=== PATIENT | male | born 1960 | race Caucasian/White ===

== ENCOUNTER 2017-05-10 16:09 | Emergency (ER) | payer MEDICARE, OTHER ==
[~2017-05-10] VITALS: Ht 172.7 cm; Wt 81.6 kg
[2017-05-10] MEDS ORDERED: IV NORMAL SALINE 1,000ML 1,000 ML IV SCH (16:27)
--- NOTE | 2017-05-10 17:00 | RAD ---
HAND LEFT 3V History: Injury to left hand. Attention to second digit, distal. Laceration to finger. Comparison: None There is a comminuted fracture across the shaft of the distal second phalanx. There is associated soft tissue injury and the bone may be exposed. No dislocation. IMPRESSION: Posttraumatic fracture of the distal phalanx of the second finger. Associated soft tissue injury and the fracture may be open. Electronically signed by: Tesfaye Adair MD (05/10/2017 4:58 PM) [id number]
[2017-05-10] MEDS ORDERED: LIDOCAINE 1% Multi-Dose 20 ML VIAL. ONE (17:24)
--- NOTE | 2017-05-10 17:29 | PHYS DOC ---
Adult General Chief Complaint Chief Complaint: LACERATION/AVULSION HPI HPI 56-year-old male presenting to the emergency department after sustaining a laceration/partial amputation to the distal portion of his second phalanx. He was working with a miter saw when the saw accidentally went off and cut through his finger. He was able to reapproximate his finger. Prior to that he reports that the distal part of his finger was "hanging there". He denies any other injuries. Onset today. Location left hand. Duration constant. No alleviating factors. Medical history history of diabetes, high blood pressure and high cholesterol and chronic back problems. Surgical history: Multiple back surgeries, left thumb, left finger surgeries, first rib resection, sinus surgery. Allergies: Penicillin and amoxicillin Social history: No smoking and occasional drinking. ROS neg for cp, soa, abd pain, n/v, fevers or chills. All other review of systems is negative unless otherwise noted in history of present illness. ED course: 56 yo M presenting to the ED today with a partially amputation to the left second distal phalanx. No other injuries. X-ray obtained which shows fracture of the distal phalanx on the second phalanx. I discussed the case with Dr. Frankel our orthopedic surgeon who states that he would be able to follow this up in clinic in the next 3-5 days. The patient's wound was washed out in the emergency department. I reapproximated the patient's wound and placed the patient in a splint. The patient will follow-up with Dr. Frankel. The patient was then discharged home in stable condition. They were to return if their symptoms worsened or if they were concerned for any reason. [id number] discharge instructions and return precautions were given. Patient's questions were answered to their satisfaction. Patient is comfortable with plan. Review of Systems Review of Systems SEE ABOVE. Current Medications Current Medications Current Medications Medications (Trade) Dose Ordered Sig/Catina Start Time Stop Time Status Last Admin Dose Admin Diphtheria/ Tetanus/Acell Pertussis (Boostrix) 0.5 ml ONCE ONCE 05/10/17 16:30 05/10/17 16:31 UNV Fentanyl Citrate (Fentanyl 2ml Vial) 50 mcg PRN Q15MIN PRN 05/10/17 16:30 05/11/17 16:29 UNV Sodium Chloride 1,000 ml @ 1,000 mls/hr Q1H 05/10/17 16:27 05/10/17 17:26 UNV Physical Exam Physical Exam SEE ABOVE Constitutional: Well developed, well nourished, no acute distress, non-toxic appearance. [] HENT: Normocephalic, atraumatic, bilateral external ears normal, oropharynx moist, no oral exudates, nose normal. Eyes: PERRLA, EOMI, conjunctiva normal, no discharge. [] Neck: Normal range of motion, no tenderness, supple, no stridor. Cardiovascular:Heart rate regular rhythm, no murmur [] Lungs & Thorax: Bilateral breath sounds clear to auscultation Abdomen: Bowel sounds normal, soft, no tenderness, no masses, no pulsatile masses. [] Skin: Warm, dry, no erythema, no rash. Back: No tenderness, no CVA tenderness. [] Extremities: The patient's left upper extremity is warm and well perfused with palpable pulse. The patient has sustained a partial amputation the distal phalanx. The tissue is partially still connected to the remainder the finger. No other traumatic injuries identified. The remainder the extremities are nontender with normal range of motion. Neurologic: Alert and oriented X 3, normal motor function, normal sensory function, no focal deficits noted. Psychologic: Affect normal, judgement normal, mood normal. [] EKG EKG [] Radiology/Procedures Radiology/Procedures [] Course & Med Decision Making Course & Med Decision Making Pertinent Labs and Imaging studies reviewed. (See chart for details) [] Dragon Disclaimer Dragon Disclaimer This electronic medical record was generated, in whole or in part, using a voice recognition dictation system. Departure Departure: Impression: Primary Impression: Finger injury Additional Impression: Injury of finger of left hand Disposition: HOME, SELF-CARE Condition: STABLE Referrals: PCP,NO (PCP) Patient Instructions: Finger Avulsion, Finger Fracture, Fingertip Injuries and Amputations Additional Instructions: Thank you for allowing us to participate in your care today. Followup with your Dr. Frankel in 3-5 days. call to make appt. [address], [place] [address] Call your Primary Doctor tomorrow and inform them of your visit today. If you do not have a primary care provider you can ask for a list of our primary care providers. Return to the emergency department you have any new or concerning findings. This should be evaluated by the primary care physician and any necessary consulting services for continued management within a few days after discharge. Return to emergency room if you have any new or concerning symptoms including but not limited to fever, chills, nausea, vomiting, intractable pain, any new rashes, chest pain, shortness of air, uncontrolled bleeding, difficulty breathing, and/or vision loss. You may have been prescribed medication that can change in your level of thinking and ability to operate machinery. These medications include hydrocodone and Ativan. Also, Benadryl has been known to do this as well. Be sure to check with your pharmacist and ask if the medications you've prescribed can affect your level of consciousness. I recommend not operating heavy machinery or driving while on medication such as these. Scripts Clindamycin Hcl (CLINDAMYCIN HCL) 300 Mg Capsule 1 CAP PO TID, #21 CAP Prov: IESHA SIERRA MD 05/10/17 Laceration Repair Lac Repair Indication: fingertip laceration Procedure: The patient was placed in the appropriate position and anesthesia around the right 2nd phalynx after finger block w/ 1% lidocaine. The area was then washed out with 250 mL of saline under high pressure. The finger was cleansed with Betadine. The laceration was closed using simple interrupted technique. 7 sutures nonabsorbable used. The wound area was then dressed with nonadherent dressing along with a splint. Total repaired wound length: 3 cm. Other Items: The patient tolerated the procedure well. Complications: none. Problem Qualifiers IESHA SIERRA MD May 10, 2017 17:29
[2017-05-10] MEDS ORDERED: DIPHTH,PERTUSS(ACELL),TET TOX 0.5 ML DISP.SYRIN. VAX IM ONE (17:30)
[2017-05-10] MEDS ORDERED: CLINDAMYCIN HCL 150 MG CAPSULE PO ONE (18:00)
[2017-05-10] MEDS ORDERED: CLIN300C8 PO (18:30)
[2017-05-10 18:56] VITALS: BP 111/42
== END 2017-05-10 19:03 | disposition home or self-care (01) ==
LOC: ER 16:09
DX: S68.123A Partial traumatic metacarpophalangeal amputation of left middle finger, initial encounter (principal); E11.9 Type 2 diabetes mellitus without complications; E78.00 Pure hypercholesterolemia, unspecified; G89.29 Other chronic pain; I10 Essential (primary) hypertension; Z88.0 Allergy status to penicillin; Z88.1 Allergy status to other antibiotic agents; W29.8XXA Contact with other powered hand tools and household machinery, initial encounter; Y93.89 Activity, other specified; Y99.8 Other external cause status; Y92.89 Other specified places as the place of occurrence of the external cause
CPT/HCPCS: 12002; 73130; 90471; 90715; 96361; 96374; 96376; 99284; J3010; J7030

== ENCOUNTER → 2017-12-03 | Outpatient (CLI) | payer MEDICARE ==
[~2017-12-03] MED LIST: BUPIVACAINE MPF 0.25% 30 ML VIAL. ONE; CLIN300C8 PO; methylPREDNISolone ACETATE 40 MG/ML VIAL. ONE
== END | disposition home or self-care (01) ==
LOC: SURG 11:36
PROVIDERS: ATTEND Anesthesiology Pain Medicine
DX: M79.18 Myalgia, other site (principal); Z88.0 Allergy status to penicillin; Z88.1 Allergy status to other antibiotic agents
CPT/HCPCS: 20553; J1030; J3490

== ENCOUNTER 2018-05-28 11:19 | Emergency (ER) | payer MEDICARE ==
[~2018-05-28] VITALS: Ht 172.7 cm; Wt 82.6 kg
[~2018-05-28 11:19] MED LIST changes: -BUPIVACAINE MPF 0.25% 30 ML VIAL. ONE; -methylPREDNISolone ACETATE 40 MG/ML VIAL. ONE
--- NOTE | 2018-05-28 11:41 | PHYS DOC ---
Past History Past Medical History: Diabetes, High Cholesterol, Other Past Surgical History: Other Alcohol Use: None Drug Use: None Adult General Chief Complaint Chief Complaint: SORE THROAT HPI HPI 57-year-old male presents with sore throat. Patient states that he has been hurting for about a week. It still seems to be getting worse. It is painful to swallow. He has had intermittent cough as well. His was diagnosed with influenza couple weeks ago. Patient has not had a fever at home. He denies congestion, shortness of breath, chest pain. Review of Systems Review of Systems Constitutional: Denies fever or chills [] Eyes: Denies change in visual acuity, redness, or eye pain [] HENT: sore throat [] Respiratory: Cough without shortness of breath [] Cardiovascular: No additional information not addressed in HPI [] GI: Denies abdominal pain, nausea, vomiting, bloody stools or diarrhea [] : Denies dysuria or hematuria [] Musculoskeletal: Denies back pain or joint pain [] Integument: Denies rash or skin lesions [] Neurologic: Denies headache, focal weakness or sensory changes [] Endocrine: Denies polyuria or polydipsia [] All other systems were reviewed and found to be within normal limits, except as documented in this note. Allergies Allergies Allergies Coded Allergies Type Severity Reaction Last Updated Verified Penicillins Allergy Unknown 05/10/17 Yes amoxicillin Allergy Unknown 05/10/17 Yes Physical Exam Physical Exam Constitutional: Well developed, well nourished, no acute distress, non-toxic appearance. [] HENT: Normocephalic, atraumatic, bilateral external ears normal, oropharynx erythematous without exudates, nose normal. [] Eyes: PERRLA, EOMI, conjunctiva normal, no discharge. [] Neck: Normal range of motion, no tenderness, supple, no stridor. [] Cardiovascular:Heart rate regular rhythm, no murmur [] Lungs & Thorax: Bilateral breath sounds clear to auscultation [] Abdomen: Bowel sounds normal, soft, no tenderness, no masses, no pulsatile masses. [] Skin: Warm, dry, no erythema, no rash. [] Back: No tenderness, no CVA tenderness. [] Extremities: No tenderness, no cyanosis, no clubbing, ROM intact, no edema. [] Neurologic: Alert and oriented X 3, normal motor function, normal sensory function, no focal deficits noted. [] Psychologic: Affect normal, judgement normal, mood normal. [] EKG EKG [] Radiology/Procedures Radiology/Procedures [] Course & Med Decision Making Course & Med Decision Making Pertinent Labs and Imaging studies reviewed. (See chart for details) The patient's rapid strep and influenza's are negative. His is likely viral, but I will give the patient a prescription for azithromycin due to his penicillin allergy in case it does not improve. The patient is stable for discharge at this time. [] Dragon Disclaimer Dragon Disclaimer This electronic medical record was generated, in whole or in part, using a voice recognition dictation system. Departure Departure: Impression: Primary Impression: Pharyngitis Disposition: 01 HOME, SELF-CARE Condition: STABLE Referrals: TEE HENRY DO (PCP) Patient Instructions: Viral and Bacterial Pharyngitis, [id number] Scripts Azithromycin (AZITHROMYCIN TABLET) 250 Mg Tablet 1 PKG PO UD for pharyngitis, #6 TAB Prov: CELIO TIJERINA DO 05/28/18 Problem Qualifiers Primary Impression: Pharyngitis Pharyngitis/tonsillitis etiology: unspecified etiology Qualified Codes: J02.9 - Acute pharyngitis, unspecified CELIO TIJERINA DO May 28, 2018 11:41
[2018-05-28 12:08] LABS: INFLUENZA A PATIENT NEGATIVE (NEGATIVE); INFLUENZA B PATIENT NEGATIVE (NEGATIVE)
[2018-05-28] MEDS ORDERED: AZIT250T6 PO (12:18)
[2018-05-28 12:29] VITALS: BP 108/64
[2018-05-28] MEDS ORDERED: LIDOCAINE 2% VISCOUS 15 ML SOLUTION. SWSW ONE (12:55)
== END 2018-05-28 12:36 | disposition home or self-care (01) ==
LOC: ER 11:19
DX: J02.9 Acute pharyngitis, unspecified (principal); E11.9 Type 2 diabetes mellitus without complications; E78.00 Pure hypercholesterolemia, unspecified; Z88.0 Allergy status to penicillin; Z88.1 Allergy status to other antibiotic agents
CPT/HCPCS: 87070; 87804; 87880; 99283